=== PATIENT | male | born 1970 | race American Indian/Alaskan Native ===

== ENCOUNTER 2021-11-28 00:23 | Emergency (ER) | payer SELFPAY ==
[2021-11-28 00:50] LABS: Hematocrit 30.2 % (35.5-45.6); Hemoglobin 9.5 gm/dl (11.8-15.2); Mean Corpuscular HGB Conc 31 % (32-34); Mean Corpuscular Volume 85 fl (84-94); Platelet Count 154 K/mm3 (140-440); Red Blood Count 3.55 M/mm3 (3.65-5.03); Red Cell Distribution Width 15.3 % (13.2-15.2)
[2021-11-28 01:11] LABS: Alanine Aminotransferase 13 units/L (7-56); BUN/Creatinine Ratio 17; Blood Urea Nitrogen 15 mg/dL (9-20); Calcium 8.5 mg/dL (8.4-10.2); Hemolysis Index 4
--- NOTE | 2021-11-28 01:18 | XRay Report ---
CHEST 2 VIEWS INDICATION / CLINICAL INFORMATION: CP. COMPARISON: None available. FINDINGS: SUPPORT DEVICES: None. HEART / MEDIASTINUM: No significant abnormality. LUNGS / PLEURA: No significant pulmonary or pleural abnormality. No pneumothorax. ADDITIONAL FINDINGS: No significant additional findings. IMPRESSION: 1. No acute findings. Signer Name: Francisco Weir DO Signed: 11/28/2021 1:14 AM Workstation Name: [id number]
[2021-11-28] MEDS ORDERED: oxyCODONE /ACETAMINOPHEN 5-325MG TAB PO ONE (01:51)
[2021-11-28] MEDS ORDERED: MORPHINE 4 MG/1 ML INJ IM ONE (05:07)
[2021-11-28] MEDS ORDERED: KETOROLAC 30 MG/1 ML INJ IM ONE (05:07)
[2021-11-28 05:11] LABS: Total Cells Counted 100
[2021-11-28 05:12] LABS: Anisocytosis 1+; Platelet Estimate Consistent w Auto
--- NOTE | 2021-11-28 06:28 | Cat Scan Report ---
CTA CHEST WITH CONTRAST INDICATION / CLINICAL INFORMATION: Pt complains of increasing chest pain. TECHNIQUE: Axial CT images were obtained through the chest after injection of 100 cc of Omnipaque 350 IV contrast. 3 plane MIP and/or 3D reconstructions were produced. All CT scans at this location are performed using CT dose reduction for ALARA by means of automated exposure control. COMPARISON: Chest radiograph from earlier in the day FINDINGS: PULMONARY ARTERIES: No pulmonary emboli. THORACIC AORTA: No significant abnormality. HEART: No significant abnormality. CORONARY ARTERY CALCIFICATION: None. MEDIASTINUM / NICK: Several enlarged mediastinal lymph nodes, the largest node in the right paratrach eal region measuring up to 1.4 cm (series 2 image 38). PLEURA: No pleural effusion. No pneumothorax. LUNGS: There is diffuse bronchial wall thickening. Emphysematous change throughout the lungs. ADDITIONAL FINDINGS: There are numerous bilateral axillary lymph nodes, as well as retroperitoneal ly mph nodes. UPPER ABDOMEN: No acute findings. SKELETAL STRUCTURES: No significant osseous abnormality. IMPRESSION: 1. No CT evidence for pulmonary embolism. 2. Bronchial wall thickening suggesting bronchitis. 3. Enlarged mediastinal lymph nodes. Numerous axillary and retroperitoneal lymph nodes, correlate for lymphoproliferative disorder. Signer Name: Francisco Weir DO Signed: 11/28/2021 6:24 AM Workstation Name: [id number]
[2021-11-28 09:10] VITALS: BP 154/99
--- NOTE | 2021-11-28 09:30 | Emergency Department Report ---
ED Chest Pain HPI - General Chief Complaint: Chest Pain Stated Complaint: CHEST PAIN WILLIAM PUI?: No Time Seen by Provider: 11/28/21 09:09 Source: patient Mode of arrival: Ambulatory Limitations: No Limitations - History of Present Illness Initial Comments: Chief complaint: Chest pain coughing up blood HPI: This is a 51-year-old male with history of hypertension chronic bronchitis who presents with chest pain and hemoptysis. Sputum streaked with blood. He denies fever, abdominal pain. He has mild shortness of breath and wheezing. Symptoms resolved with treatment provided emergency department. MD Complaint: chest pain, other (Productive cough) -: Last night Onset: during rest Pain Radiation: none Severity: mild Severity scale (0 -10): 5 Quality: sharp Consistency: now resolved Improves With: nothing Worsens With: other (cough) - Related Data Previous Rx's Medication Instructions Recorded Last Taken Type Albuterol Mdi (or & Nicu Only) 2 puff IH QID PRN #8.5 gram 11/28/21 Unknown Rx [ProAir HFA Inhaler] Doxycycline Hyclate [Doxycycline 100 mg PO Q12HR 7 Days #14 tab 11/28/21 Unknown Rx Hyclate TAB] Allergies Allergy/AdvReac Type Severity Reaction Status Date / Time No Known Allergies Allergy Unverified 11/28/21 00:31 Heart Score - HEART Score History: Slightly suspicious EKG: Normal Age: 45-65 Risk factors: 1-2 risk factors Troponin: < normal limit HEART Score: 2 - EKG Read Time Time EKG Completed: 01:38 EKG Read Time: 01:40 - Critical Actions Critical Actions: 0-3 pts:0.9-1.7%risk of adverse cardiac event.Candidate for discharge ED Review of Systems ROS: Stated complaint: CHEST PAIN WILLIAM Other details as noted in HPI Comment: All other systems reviewed and negative Constitutional: denies: chills, fever Respiratory: cough, shortness of breath Cardiovascular: chest pain Gastrointestinal: denies: abdominal pain, nausea ED Past Medical Hx - Past Medical History Previous Medical History?: Yes Hx Hypertension: Yes Additional medical history: Chronic bronchitis - Surgical History Past Surgical History?: No - Social History Smoking Status: Current Every Day Smoker Substance Use Type: None - Medications Home Medications: Home Medications Medication Instructions Recorded Confirmed Last Taken Type Albuterol Mdi (or & Nicu Only) 2 puff IH QID PRN #8.5 gram 11/28/21 Unknown Rx [ProAir HFA Inhaler] Doxycycline Hyclate [Doxycycline 100 mg PO Q12HR 7 Days #14 tab 11/28/21 Unknown Rx Hyclate TAB] ED Physical Exam - General Limitations: No Limitations General appearance: alert, in no apparent distress - Head Head exam: Present: atraumatic, normocephalic - Eye Eye exam: Present: normal appearance - ENT ENT exam: Present: mucous membranes moist - Neck Neck exam: Present: normal inspection, full ROM - Respiratory Respiratory exam: Present: normal lung sounds bilaterally. Absent: respiratory distress, wheezes, rales, rhonchi - Cardiovascular Cardiovascular Exam: Present: regular rate, normal rhythm, normal heart sounds. Absent: systolic murmur, diastolic murmur, rubs, gallop - GI/Abdominal GI/Abdominal exam: Present: soft, normal bowel sounds. Absent: distended, tenderness, guarding, rebound - Rectal Rectal exam: Present: deferred - Extremities Exam Extremities exam: Present: normal inspection - Neurological Exam Neurological exam: Present: alert, oriented X3 - Psychiatric Psychiatric exam: Present: normal affect, normal mood - Skin Skin exam: Present: warm, dry, intact, normal color. Absent: rash ED Course Vital Signs 11/28/21 11/28/21 11/28/21 00:27 02:20 06:16 Temperature 98.2 F Pulse Rate 98 H Respiratory 22 16 20 Rate Blood Pressure 189/111 Blood Pressure [Left] O2 Sat by Pulse 98 Oximetry 11/28/21 11/28/21 11/28/21 06:17 09:09 09:11 Temperature 97.8 F Pulse Rate 79 Respiratory 20 15 15 Rate Blood Pressure Blood Pressure 154/99 [Left] O2 Sat by Pulse 97 97 Oximetry ED Medical Decision Making - Lab Data Result diagrams: 11/28/21 00:40 11/28/21 00:40 Laboratory Results - last 24 hr 11/28/21 11/28/21 11/28/21 00:40 00:40 01:52 WBC 4.3 L RBC 3.55 L Hgb 9.5 L Hct 30.2 L MCV 85 MCH 27 L MCHC 31 L RDW 15.3 H Plt Count 154 Add Manual Diff Complete Total Counted 100 Seg Neuts % (Manual) 67.0 Lymphocytes % (Manual) 31.0 Monocytes % (Manual) 2.0 Nucleated RBC % Not Reportable Seg Neutrophils # Man 2.9 Band Neutrophils # 0.0 Lymphocytes # (Manual) 1.3 Abs React Lymphs (Man) 0.0 Monocytes # (Manual) 0.1 Eosinophils # (Manual) 0.0 Basophils # (Manual) 0.0 Metamyelocytes # 0.0 Myelocytes # 0.0 Promyelocytes # 0.0 Blast Cells # 0.0 WBC Morphology Not Reportable Hypersegmented Neuts Not Reportable Hyposegmented Neuts Not Reportable Hypogranular Neuts Not Reportable Smudge Cells Not Reportable Toxic Granulation Not Reportable Toxic Vacuolation Not Reportable Dohle Bodies Not Reportable Pelger-Huet Anomaly Not Reportable Misbah Rods Not Reportable Platelet Estimate Consistent w auto Clumped Platelets Not Reportable Plt Clumps, EDTA Not Reportable Large Platelets Not Reportable Giant Platelets Not Reportable Platelet Satelliting Not Reportable Plt Morphology Comment Not Reportable RBC Morphology Not Reportable Dimorphic RBCs Not Reportable Polychromasia Not Reportable Hypochromasia Not Reportable Poikilocytosis Not Reportable Anisocytosis 1+ Microcytosis Not Reportable Macrocytosis Not Reportable Spherocytes Not Reportable Pappenheimer Bodies Not Reportable Sickle Cells Not Reportable Target Cells Not Reportable Tear Drop Cells Not Reportable Ovalocytes Not Reportable Helmet Cells Not Reportable Rehman-[place] Bodies Not Reportable [place] Rings Not Reportable [place] Cells Not Reportable Bite Cells Not Reportable Crenated Cell Not Reportable Elliptocytes Not Reportable Acanthocytes (Spur) Not Reportable Rouleaux Not Reportable Hemoglobin C Crystals Not Reportable Schistocytes Not Reportable Malaria parasites Not Reportable Hernandez Bodies Not Reportable Hem Pathologist Commnt No D-Dimer 486.67 H Sodium 135 L Potassium 4.1 Chloride 102.5 Carbon Dioxide 23 Anion Gap 14 BUN 15 Creatinine 0.9 Estimated GFR > 60 BUN/Creatinine Ratio 17 Glucose 91 Calcium 8.5 Total Bilirubin 0.20 AST 27 ALT 13 Alkaline Phosphatase 86 Troponin T < 0.010 Total Protein 8.3 H Albumin 3.0 L Albumin/Globulin Ratio 0.6 11/28/21 11/28/21 03:33 07:37 WBC RBC Hgb Hct MCV MCH MCHC RDW Plt Count Add Manual Diff Total Counted Seg Neuts % (Manual) Lymphocytes % (Manual) Monocytes % (Manual) Nucleated RBC % Seg Neutrophils # Man Band Neutrophils # Lymphocytes # (Manual) Abs React Lymphs (Man) Monocytes # (Manual) Eosinophils # (Manual) Basophils # (Manual) Metamyelocytes # Myelocytes # Promyelocytes # Blast Cells # WBC Morphology Hypersegmented Neuts Hyposegmented Neuts Hypogranular Neuts Smudge Cells Toxic Granulation Toxic Vacuolation Dohle Bodies Pelger-Huet Anomaly Misbah Rods Platelet Estimate Clumped Platelets Plt Clumps, EDTA Large Platelets Giant Platelets Platelet Satelliting Plt Morphology Comment RBC Morphology Dimorphic RBCs Polychromasia Hypochromasia Poikilocytosis Anisocytosis Microcytosis Macrocytosis Spherocytes Pappenheimer Bodies Sickle Cells Target Cells Tear Drop Cells Ovalocytes Helmet Cells Rehman-Whitney [place] Bodies [place] Rings Aly Cells Bite Cells Crenated Cell Elliptocytes Acanthocytes (Spur) Rouleaux Hemoglobin C Crystals Schistocytes Malaria parasites Hernandez Bodies Hem Pathologist Commnt D-Dimer Sodium Potassium Chloride Carbon Dioxide Anion Gap BUN Creatinine Estimated GFR BUN/Creatinine Ratio Glucose Calcium Total Bilirubin AST ALT Alkaline Phosphatase Troponin T < 0.010 < 0.010 Total Protein Albumin Albumin/Globulin Ratio - Radiology Data Radiology results: report reviewed Patient Name: SUHAIL ROBERTS Gender: Male Date of : 1970 Referring Provider: PABLO LIVINGSTON Organization: [facility] Accession Number: [id number] Requested Date: November 28, 2021 06:04 Report Status: Final Requested Procedure: 1 Procedure Description: CT angio chest Modality: CT Findings Reporting MD: Francisco Weir Dictation Time: November 28, 2021 05:24 Collet Driller: Not available Steam Service Inspector Date: CTA CHEST WITH CONTRAST INDICATION / CLINICAL INFORMATION: Pt complains of increasing chest pain. TECHNIQUE: Axial CT images were obtained through the chest after injection of 100 cc of Omnipaque 350 IV contrast. 3 plane MIP and/or 3D reconstructions were produced. All CT scans at this location are performed using CT dose reduction for ALARA by means of automated exposure control. COMPARISON: Chest radiograph from earlier in the day FINDINGS: PULMONARY ARTERIES: No pulmonary emboli. THORACIC AORTA: No significant abnormality. HEART: No significant abnormality. CORONARY ARTERY CALCIFICATION: None. MEDIASTINUM / NICK: Several enlarged mediastinal lymph nodes, the largest node in the right paratracheal region measuring up to 1.4 cm (series 2 image 38). PLEURA: No pleural effusion. No pneumothorax. LUNGS: There is diffuse bronchial wall thickening. Emphysematous change throughout the lungs. ADDITIONAL FINDINGS: There are numerous bilateral axillary lymph nodes, as well as retroperitoneal lymph nodes. UPPER ABDOMEN: No acute findings. SKELETAL STRUCTURES: No significant osseous abnormality. IMPRESSION: 1. No CT evidence for pulmonary embolism. 2. Bronchial wall thickening suggesting bronchitis. 3. Enlarged mediastinal lymph nodes. Numerous axillary and retroperitoneal lymph nodes, correlate for lymphoproliferative disorder. Signer Name: Francisco Weir DO Signed: 11/28/2021 5:24 AM Workstation Name: [id number] Patient Name: SUHAIL ROBERTS Gender: Male Date of : 1970 Referring Provider: KACIE ED Organization: [facility] Accession Number: [id number] Requested Date: November 28, 2021 00:33 Report Status: Final Requested Procedure: 1 Procedure Description: XR chest routine 2V Modality: XR Findings Reporting MD: Francisco Weir Dictation Time: November 28, 2021 00:14 Collet Driller: Not available Steam Service Inspector Date: CHEST 2 VIEWS INDICATION / CLINICAL INFORMATION: CP. COMPARISON: None available. FINDINGS: SUPPORT DEVICES: None. HEART / MEDIASTINUM: No significant abnormality. LUNGS / PLEURA: No significant pulmonary or pleural abnormality. No pneumothorax. ADDITIONAL FINDINGS: No significant additional findings. IMPRESSION: 1. No acute findings. Signer Name: Francisco Weir DO Signed: 11/28/2021 12:14 AM Workstation Name: [id number] - Medical Decision Making Clinical impression: Acute on chronic bronchitis no indication of ACS or pulmonary embolism. CT angiogram negative for VTE. Heart score 2. Prescribed doxycycline albuterol MDI. Referred to outpatient physician and vulcanizer operator. Referral form faxed to [facility] for outpatient cardiac evaluation. Critical care attestation.: If time is entered above; I have spent that time in minutes in the direct care of this critically ill patient, excluding procedure time. ED Disposition Clinical Impression: Acute bronchitis Disposition: 01 HOME / SELF CARE / HOMELESS Is pt being admited?: No Does the pt Need Aspirin: No Condition: Stable Instructions: Acute Bronchitis (ED), Acute Bronchitis, Adult, [id number] Prescriptions: Doxycycline Hyclate [Doxycycline Hyclate TAB] 100 mg PO Q12HR 7 Days #14 tab Albuterol Mdi (or & Nicu Only) [ProAir HFA Inhaler] 2 puff IH QID PRN #8.5 gram PRN Reason: Shortness Of Breath Referrals: LO FISHER MD [Staff Physician] - 3-5 Days ELLIOTT DINH MD [Staff Physician] - 3-5 Days
--- NOTE | 2021-11-28 09:39 | Electrocardiograph Report ---
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
== END 2021-11-28 10:38 | disposition home or self-care (01) ==
LOC: ED 00:23
DX: J20.9 Acute bronchitis, unspecified (principal); I10 Essential (primary) hypertension; F17.200 Nicotine dependence, unspecified, uncomplicated
CPT/HCPCS: 36415; 71046; 71275; 80053; 84484; 85007; 85025; 85379; 93005; 96372; 99284; J1885; J2270; Q9967

== ENCOUNTER 2022-03-05 12:41 | Inpatient (IN) | payer SELFPAY ==
--- NOTE | 2022-03-05 13:32 | XRay Report ---
CHEST 2 VIEWS INDICATION / CLINICAL INFORMATION: CP. COMPARISON: 11/28/2021 FINDINGS: SUPPORT DEVICES: None. HEART / MEDIASTINUM: No significant abnormality. LUNGS / PLEURA: No significant pulmonary or pleural abnormality. No pneumothorax. ADDITIONAL FINDINGS: No significant additional findings. IMPRESSION: 1. No acute findings. Signer Name: Amadeo Villalba MD Signed: 03/05/2022 1:27 PM Workstation Name: [id number]
[2022-03-05] MEDS ORDERED: MORPHINE 2 MG/1 ML INJ IV ONE ×2 (14:13→17:04)
[2022-03-05] MEDS ORDERED: ONDANSETRON 4 MG/2 ML INJ IV ONE ×2 (14:14→17:05)
[2022-03-05 14:57] LABS: Hematocrit 29.6 % (35.5-45.6); Hemoglobin 9.6 gm/dl (11.8-15.2); Mean Corpuscular HGB Conc 32 % (32-34); Mean Corpuscular Volume 83 fl (84-94); Red Blood Count 3.56 M/mm3 (3.65-5.03)
[2022-03-05] MEDS ORDERED: ERYTHROMYCIN 5 MG/1 GM OPHTH OINT OU ONE (15:26)
--- NOTE | 2022-03-05 15:32 | Emergency Department Report ---
ED Chest Pain HPI - General Chief Complaint: Chest Pain Stated Complaint: CHEST PAIN Time Seen by Provider: 03/05/22 13:36 Source: patient, EMS Mode of arrival: Stretcher Limitations: No Limitations - History of Present Illness MD Complaint: chest pain -: Gradual, days(s) Onset: during rest Pain Location: left chest Pain Radiation: none Severity: mild Severity scale (0 -10): 3 Quality: tightness, heaviness Consistency: intermittent Improves With: nothing Worsens With: exertion re: denies: nausea, vomting, diaphoresis Other Symptoms: cough. denies: fever, leg swelling, palpitations Treatments Prior to Arrival: none - Related Data On Oral Contraceptives: No Previous Rx's Medication Instructions Recorded Last Taken Type RX: Albuterol Mdi (or & Nicu Only) 2 puff IH QID PRN #8.5 gram 11/28/21 Unknown Rx [ProAir HFA Inhaler] RX: Doxycycline Hyclate 100 mg PO Q12HR 7 Days #14 tab 11/28/21 Unknown Rx [Doxycycline Hyclate TAB] RX: Lisinopril [Zestril] 5 mg PO DAILY 90 Days #90 tablet 11/28/21 Unknown Rx RX: amLODIPine 5 mg PO DAILY 90 Days #90 tab 11/28/21 Unknown Rx Allergies Allergy/AdvReac Type Severity Reaction Status Date / Time No Known Allergies Allergy Unverified 03/05/22 12:44 ED Review of Systems ROS: Stated complaint: CHEST PAIN Other details as noted in HPI Constitutional: denies: chills, fever Eyes: denies: eye pain, eye discharge, vision change ENT: denies: ear pain, throat pain Respiratory: cough, shortness of breath, SOB with exertion. denies: stridor Cardiovascular: denies: chest pain, palpitations Endocrine: no symptoms reported Gastrointestinal: denies: abdominal pain, nausea, diarrhea Genitourinary: denies: urgency, dysuria Musculoskeletal: denies: back pain, joint swelling, arthralgia Skin: denies: rash, lesions Neurological: denies: headache, weakness, paresthesias Psychiatric: denies: anxiety, depression Hematological/Lymphatic: denies: easy bleeding, easy bruising ED Past Medical Hx - Past Medical History Previous Medical History?: Yes Hx Hypertension: Yes Hx Deep Vein Thrombosis: No Hx COPD: Yes Additional medical history: Chronic bronchitis - Surgical History Past Surgical History?: Yes - Family History Family history: hypertension - Social History Smoking Status: Current Every Day Smoker Substance Use Type: None - Medications Home Medications: Home Medications Medication Instructions Recorded Confirmed Last Taken Type RX: Albuterol Mdi (or & Nicu Only) 2 puff IH QID PRN #8.5 gram 11/28/21 Unknown Rx [ProAir HFA Inhaler] RX: Doxycycline Hyclate 100 mg PO Q12HR 7 Days #14 tab 11/28/21 Unknown Rx [Doxycycline Hyclate TAB] RX: Lisinopril [Zestril] 5 mg PO DAILY 90 Days #90 tablet 11/28/21 Unknown Rx RX: amLODIPine 5 mg PO DAILY 90 Days #90 tab 11/28/21 Unknown Rx ED Physical Exam - General Limitations: No Limitations General appearance: alert, in no apparent distress - Head Head exam: Present: atraumatic, normocephalic - Eye Eye exam: Present: normal appearance - ENT ENT exam: Present: mucous membranes moist - Neck Neck exam: Present: normal inspection - Respiratory Respiratory exam: Present: rhonchi, other (R base scattered rhonchi and diminished sounds). Absent: respiratory distress - Cardiovascular Cardiovascular Exam: Present: regular rate, normal rhythm. Absent: systolic murmur, diastolic murmur, rubs, gallop - GI/Abdominal GI/Abdominal exam: Present: soft, normal bowel sounds - Rectal Rectal exam: Present: deferred - Extremities Exam Extremities exam: Present: normal inspection - Back Exam Back exam: Present: normal inspection - Neurological Exam Neurological exam: Present: alert, oriented X3 - Psychiatric Psychiatric exam: Present: normal affect, normal mood - Skin Skin exam: Present: warm, dry, intact, normal color. Absent: rash ED Course Vital Signs 03/05/22 03/05/22 03/05/22 12:42 12:54 13:01 Temperature 98.4 F Pulse Rate 100 H 94 H Respiratory 16 26 H Rate Blood Pressure Blood Pressure 132/65 [Left] O2 Sat by Pulse 96 94 91 Oximetry 03/05/22 03/05/22 03/05/22 13:14 13:19 13:31 Temperature 98.2 F Pulse Rate 105 H 89 90 Respiratory 22 24 Rate Blood Pressure 125/89 125/89 Blood Pressure 125/89 [Left] O2 Sat by Pulse 95 95 Oximetry 03/05/22 03/05/22 03/05/22 13:45 14:01 14:12 Temperature Pulse Rate 86 96 H Respiratory 26 H 22 28 H Rate Blood Pressure 125/89 130/84 Blood Pressure [Left] O2 Sat by Pulse 97 93 95 Oximetry 03/05/22 03/05/22 03/05/22 14:15 14:31 14:45 Temperature Pulse Rate 82 84 80 Respiratory 29 H 26 H 24 Rate Blood Pressure 130/84 130/84 130/84 Blood Pressure [Left] O2 Sat by Pulse 93 94 95 Oximetry 03/05/22 03/05/22 03/05/22 15:01 15:15 15:31 Temperature Pulse Rate 82 82 86 Respiratory 23 25 H 16 Rate Blood Pressure 133/81 133/81 133/81 Blood Pressure [Left] O2 Sat by Pulse 96 93 91 Oximetry 03/05/22 03/05/22 03/05/22 15:45 16:01 16:15 Temperature Pulse Rate 81 80 82 Respiratory 24 23 14 Rate Blood Pressure 133/81 135/89 135/89 Blood Pressure [Left] O2 Sat by Pulse 92 96 96 Oximetry 03/05/22 03/05/22 03/05/22 16:31 16:45 17:01 Temperature Pulse Rate 83 78 84 Respiratory 23 27 H 25 H Rate Blood Pressure 135/89 135/89 140/94 Blood Pressure [Left] O2 Sat by Pulse 95 97 91 Oximetry 03/05/22 03/05/22 03/05/22 17:15 17:31 17:45 Temperature Pulse Rate 82 82 83 Respiratory 17 14 28 H Rate Blood Pressure 140/94 140/94 140/94 Blood Pressure [Left] O2 Sat by Pulse 92 94 93 Oximetry 03/05/22 03/05/22 03/05/22 18:01 18:15 18:21 Temperature Pulse Rate 92 H 80 Respiratory 20 24 22 Rate Blood Pressure 142/89 142/89 Blood Pressure [Left] O2 Sat by Pulse 84 96 95 Oximetry ED Medical Decision Making - Lab Data Result diagrams: 03/05/22 13:19 03/05/22 14:53 - EKG Data -: EKG Interpreted by Ct EKG shows normal: sinus rhythm Rate: normal - EKG Data When compared to previous EKG there are: previous EKG unavailable Interpretation: nonspecific ST-T wave enriqueta, LVH 03/05/22 20:02 Second EKG done at 1739, shows sinus rhythm no ST changes similar to EKG #1. Critical care attestation.: If time is entered above; I have spent that time in minutes in the direct care of this critically ill patient, excluding procedure time. ED Disposition Clinical Impression: Chest pain due to CAD, Pneumonia, Anemia Disposition: ADMITTED INPATIENT Condition: Stable Instructions: Nonspecific Chest Pain, Adult, Bacterial Pneumonia (ED) Referrals: LO FISHER MD [Primary Care Provider] - 3-5 Days
[2022-03-05 15:51] LABS: Alanine Aminotransferase 8 units/L (7-56); Albumin 2.5 g/dL (3.9-5); BUN/Creatinine Ratio 9; Blood Urea Nitrogen 11 mg/dL (9-20); Hemolysis Index 2
[2022-03-05 16:46] LABS: Basophils % (Manual) 0 % (0.0-1.8); Eosinophils % (Manual) 0 % (0.0-4.3); Platelet Estimate Consistent w Auto; Total Cells Counted 100
[2022-03-05 16:47] LABS: Anisocytosis 1+
[2022-03-05 18:08] LABS: Platelet Count 247 K/mm3 (140-440)
--- NOTE | 2022-03-05 19:00 | Cat Scan Report ---
CTA chest with contrast INDICATION : ELEVATED D-DIMER PE VS DISECTION 100 ML OMNI 350 . TECHNIQUE: Axial imaging performed through the chest, with contrast bolus timing set to maximize opa cification of the pulmonary arteries. 3-plane MIP reformatted images were obtained. All CT scans at this location are performed using CT dose reduction for ALARA by means of automated exposure control. 100 mL of intravenous contrast administered. COMPARISON: None FINDINGS: Bolus/PTE: Contrast bolus timing is adequate. No filling defect is present to suggest PTE. Mediastinum: Heart and great vessels appear normal. Several shotty mediastinal lymph nodes are pres ent. Lungs: There is moderately advanced emphysema with moderate patchy bibasilar pneumonia. No pleural e ffusion. Upper abdomen: Limited imaging of the upper abdomen shows nothing acute. Bones: Degenerative changes in the spine with nothing acute. IMPRESSION: 1. Negative for PTE. 2. Negative for aortic dissection. No aneurysmal dilatation of the aorta. 3. Moderate patchy bibasilar pneumonia. Several enlarged mediastinal lymph nodes are most likely reac tive in this setting. Signer Name: Juan Lo MD Signed: 03/05/2022 6:56 PM Workstation Name: [id number]
[2022-03-05] MEDS ORDERED: ALBUTEROL 8.5 GM MDI INHALATION IH PRN (21:28)
[2022-03-05] MEDS ORDERED: ONDANSETRON 4 MG/2 ML INJ IV PRN (21:30)
[2022-03-05] MEDS ORDERED: METOCLOPRAMIDE 10 MG/2 ML INJ IV PRN (21:30)
[2022-03-05] MEDS ORDERED: ACETAMINOPHEN 325 MG TAB PO PRN (21:30)
[2022-03-05] MEDS ORDERED: oxyCODONE /ACETAMINOPHEN 5-325MG TAB PO PRN (21:30)
--- NOTE | 2022-03-05 21:36 | History and Physical Report ---
History of Present Illness Date of examination: 03/05/22 Date of admission: 03/05/2022 Chief complaint: Chest pain since a.m. History of present illness: 51-year-old male with history of alcohol and hypertension presents with left- sided chest pain since a.m. Not radiating. No nausea or vomiting or diaphoresis. Chest pain is dull in character and about 6 on a scale of 1-10. Slight shortness of breath present. No palpitations. No exacerbating or relieving factors. Did not have any cardiac work-up in the past. No exertional chest pain. - Past Medical History Previous Medical History?: Yes Hx Hypertension: Yes Hx Deep Vein Thrombosis: No Hx COPD: Yes Additional medical history: Chronic bronchitis - Surgical History Past Surgical History?: Yes - Family History Family history: hypertension - Social History Smoking Status: Current Every Day Smoker Substance Use Type: None - Medications Home Medications: Home Medications Medication Instructions Recorded Confirmed Last Taken Type RX: Albuterol Mdi (or & Nicu Only) 2 puff IH QID PRN #8.5 gram 11/28/21 Unknown Rx [ProAir HFA Inhaler] RX: Doxycycline Hyclate 100 mg PO Q12HR 7 Days #14 tab 11/28/21 Unknown Rx [Doxycycline Hyclate TAB] RX: Lisinopril [Zestril] 5 mg PO DAILY 90 Days #90 tablet 11/28/21 Unknown Rx RX: amLODIPine 5 mg PO DAILY 90 Days #90 tab 11/28/21 Unknown Rx Review of Systems ROS: Stated complaint: CHEST PAIN Other details as noted in HPI Constitutional: denies: chills, fever Eyes: denies: eye pain, eye discharge, vision change ENT: denies: ear pain, throat pain Respiratory: cough, shortness of breath, SOB with exertion. denies: stridor Cardiovascular: denies: chest pain, palpitations Endocrine: no symptoms reported Gastrointestinal: denies: abdominal pain, nausea, diarrhea Genitourinary: denies: urgency, dysuria Musculoskeletal: denies: back pain, joint swelling, arthralgia Skin: denies: rash, lesions Neurological: denies: headache, weakness, paresthesias Psychiatric: denies: anxiety, depression Hematological/Lymphatic: denies: easy bleeding, easy bruising Medications and Allergies Allergies Allergy/AdvReac Type Severity Reaction Status Date / Time diphenhydramine Allergy Swelling Verified 03/05/22 22:06 [From Benadryl] metoclopramide [From Reglan] Allergy Swelling Verified 03/05/22 22:06 Home Medications Medication Instructions Recorded Confirmed Last Taken Type Albuterol Mdi (or & Nicu Only) 2 puff IH QID PRN #8.5 gram 11/28/21 Unknown Rx [ProAir HFA Inhaler] Doxycycline Hyclate [Doxycycline 100 mg PO Q12HR 7 Days #14 tab 11/28/21 Unknown Rx Hyclate TAB] Lisinopril [Zestril] 5 mg PO DAILY 90 Days #90 tablet 11/28/21 Unknown Rx amLODIPine 5 mg PO DAILY 90 Days #90 tab 11/28/21 Unknown Rx Exam - Constitutional Vitals: Temp Pulse Resp BP Pulse Ox 98.7 F 83 21 131/69 95 03/05/22 19:15 03/05/22 19:15 03/05/22 19:15 03/05/22 19:15 03/05/22 19:15 General appearance: Present: no acute distress, well-nourished - EENT Eyes: Present: PERRL ENT: hearing intact, clear oral mucosa - Neck Neck: Present: supple, normal ROM - Respiratory Respiratory effort: normal Respiratory: bilateral: CTA - Cardiovascular Heart rate: 78 Rhythm: regular Heart Sounds: Present: S1 & S2. Absent: rub, click - Extremities Extremities: pulses symmetrical, No edema Peripheral Pulses: within normal limits - Abdominal General gastrointestinal: Present: soft, non-tender, non-distended, normal bowel sounds Male genitourinary: Present: normal - Integumentary Integumentary: Present: clear, warm, dry - Musculoskeletal Musculoskeletal: gait normal, strength equal bilaterally - Psychiatric Psychiatric: appropriate mood/affect, intact judgment & insight - Neurologic Neurologic: CNII-XII intact, moves all extremities HEART Score - HEART Score History: Moderately suspicious Age: 45-65 Risk factors: 1-2 risk factors Troponin: Troponin T < 0.010 ng/mL (0.00-0.029) 03/05/22 17:26 Troponin: < normal limit - Critical Actions Critical Actions: 4-6 pts:12-16.6% risk of adverse cardiac event. Should be admitted Results - Labs CBC & Chem 7: 03/06/22 05:18 03/06/22 05:18 Labs: Laboratory Last Values WBC 4.4 K/mm3 (4.5-11.0) L 03/05/22 13:19 RBC 3.56 M/mm3 (3.65-5.03) L 03/05/22 13:19 Hgb 9.6 gm/dl (11.8-15.2) L 03/05/22 13:19 Hct 29.6 % (35.5-45.6) L 03/05/22 13:19 MCV 83 fl (84-94) L 03/05/22 13:19 MCH 27 pg (28-32) L 03/05/22 13:19 MCHC 32 % (32-34) 03/05/22 13:19 RDW 16.0 % (13.2-15.2) H 03/05/22 13:19 Plt Count 247 K/mm3 (140-440) 03/05/22 13:19 Add Manual Diff Complete 03/05/22 13:19 Total Counted 100 03/05/22 13:19 Seg Neuts % (Manual) 89.0 % (40.0-70.0) H 03/05/22 13:19 Band Neutrophils % 0 % 03/05/22 13:19 Lymphocytes % (Manual) 10.0 % (13.4-35.0) L 03/05/22 13:19 Reactive Lymphs % (Man) 0 % 03/05/22 13:19 Monocytes % (Manual) 1.0 % (0.0-7.3) 03/05/22 13:19 Eosinophils % (Manual) 0 % (0.0-4.3) 03/05/22 13:19 Basophils % (Manual) 0 % (0.0-1.8) 03/05/22 13:19 Metamyelocytes % 0 % 03/05/22 13:19 Myelocytes % 0 % 03/05/22 13:19 Promyelocytes % 0 % 03/05/22 13:19 Blast Cells % 0 % 03/05/22 13:19 Nucleated RBC % Not Reportable 03/05/22 13:19 Seg Neutrophils # Man 0.0 K/mm3 (1.8-7.7) L 03/05/22 13:19 Band Neutrophils # 0.0 K/mm3 03/05/22 13:19 Lymphocytes # (Manual) 0.0 K/mm3 (1.2-5.4) L 03/05/22 13:19 Abs React Lymphs (Man) 0.0 K/mm3 03/05/22 13:19 Monocytes # (Manual) 0.0 K/mm3 (0.0-0.8) 03/05/22 13:19 Eosinophils # (Manual) 0.0 K/mm3 (0.0-0.4) 03/05/22 13:19 Basophils # (Manual) 0.0 K/mm3 (0.0-0.1) 03/05/22 13:19 Metamyelocytes # 0.0 K/mm3 03/05/22 13:19 Myelocytes # 0.0 K/mm3 03/05/22 13:19 Promyelocytes # 0.0 K/mm3 03/05/22 13:19 Blast Cells # 0.0 K/mm3 03/05/22 13:19 WBC Morphology Not Reportable 03/05/22 13:19 Hypersegmented Neuts Not Reportable 03/05/22 13:19 Hyposegmented Neuts Not Reportable 03/05/22 13:19 Hypogranular Neuts Not Reportable 03/05/22 13:19 Smudge Cells Not Reportable 03/05/22 13:19 Toxic Granulation Not Reportable 03/05/22 13:19 Toxic Vacuolation Not Reportable 03/05/22 13:19 Dohle Bodies Not Reportable 03/05/22 13:19 Pelger-Huet Anomaly Not Reportable 03/05/22 13:19 Misbah Rods Not Reportable 03/05/22 13:19 Platelet Estimate Consistent w auto 03/05/22 13:19 Clumped Platelets Not Reportable 03/05/22 13:19 Plt Clumps, EDTA Not Reportable 03/05/22 13:19 Large Platelets Not Reportable 03/05/22 13:19 Giant Platelets Not Reportable 03/05/22 13:19 Platelet Satelliting Not Reportable 03/05/22 13:19 Plt Morphology Comment Not Reportable 03/05/22 13:19 RBC Morphology Not Reportable 03/05/22 13:19 Dimorphic RBCs Not Reportable 03/05/22 13:19 Polychromasia Not Reportable 03/05/22 13:19 Hypochromasia Not Reportable 03/05/22 13:19 Poikilocytosis Not Reportable 03/05/22 13:19 Anisocytosis 1+ 03/05/22 13:19 Microcytosis Few 03/05/22 13:19 Macrocytosis Not Reportable 03/05/22 13:19 Spherocytes Not Reportable 03/05/22 13:19 Pappenheimer Bodies Not Reportable 03/05/22 13:19 Sickle Cells Not Reportable 03/05/22 13:19 Target Cells Not Reportable 03/05/22 13:19 Tear Drop Cells Not Reportable 03/05/22 13:19 Ovalocytes Not Reportable 03/05/22 13:19 Helmet Cells Not Reportable 03/05/22 13:19 Rehman-Gazelle Bodies Not Reportable 03/05/22 13:19 [place] Rings Not Reportable 03/05/22 13:19 Aly Cells Not Reportable 03/05/22 13:19 Bite Cells Not Reportable 03/05/22 13:19 Crenated Cell Not Reportable 03/05/22 13:19 Elliptocytes Not Reportable 03/05/22 13:19 Acanthocytes (Spur) Not Reportable 03/05/22 13:19 Rouleaux Not Reportable 03/05/22 13:19 Hemoglobin C Crystals Not Reportable 03/05/22 13:19 Schistocytes Not Reportable 03/05/22 13:19 Malaria parasites Not Reportable 03/05/22 13:19 Hernandez Bodies Not Reportable 03/05/22 13:19 Hem Pathologist Commnt No 03/05/22 13:19 D-Dimer 864.14 ng/mlDDU (0-234) H 03/05/22 14:53 Sodium 138 mmol/L (137-145) 03/05/22 14:53 Potassium 3.9 mmol/L (3.6-5.0) 03/05/22 14:53 Chloride 103.9 mmol/L (98-107) 03/05/22 14:53 Carbon Dioxide 24 mmol/L (22-30) 03/05/22 14:53 Anion Gap 14 mmol/L 03/05/22 14:53 BUN 11 mg/dL (9-20) 03/05/22 14:53 Creatinine 1.2 mg/dL (0.8-1.3) 03/05/22 14:53 Estimated GFR > 60 ml/min 03/05/22 14:53 BUN/Creatinine Ratio 9 % 03/05/22 14:53 Glucose 88 mg/dL (75-100) 03/05/22 14:53 Calcium 8.0 mg/dL (8.4-10.2) L 03/05/22 14:53 Total Bilirubin 0.40 mg/dL (0.1-1.2) 03/05/22 14:53 AST 17 units/L (5-40) 03/05/22 14:53 ALT 8 units/L (7-56) 03/05/22 14:53 Alkaline Phosphatase 74 units/L (35-129) 03/05/22 14:53 Troponin T < 0.010 ng/mL (0.00-0.029) 03/05/22 17:26 NT-Pro-B Natriuret Pep 185.6 pg/mL (0-900) 03/05/22 14:53 Total Protein 8.3 g/dL (6.3-8.2) H 03/05/22 14:53 Albumin 2.5 g/dL (3.9-5) L 03/05/22 14:53 Albumin/Globulin Ratio 0.4 % 03/05/22 14:53 Short CBC 03/05/22 Range/Units 13:19 WBC 4.4 L (4.5-11.0) K/mm3 Hgb 9.6 L (11.8-15.2) gm/dl Hct 29.6 L (35.5-45.6) % Plt Count 247 (140-440) K/mm3 BMP 03/05/22 14:53 Sodium 138 Potassium 3.9 Chloride 103.9 Carbon Dioxide 24 BUN 11 Creatinine 1.2 Glucose 88 Calcium 8.0 L Cardiac Enzymes 03/05/22 03/05/22 Range/Units 14:53 17:26 Troponin T < 0.010 < 0.010 (0.00-0.029) ng/mL Liver Function 03/05/22 Range/Units 14:53 Total Bilirubin 0.40 (0.1-1.2) mg/dL AST 17 (5-40) units/L ALT 8 (7-56) units/L Alkaline Phosphatase 74 (35-129) units/L Albumin 2.5 L (3.9-5) g/dL Short CBC 03/05/22 03/06/22 Range/Units 13:19 05:18 WBC 4.4 L 6.5 (4.5-11.0) K/mm3 Hgb 9.6 L 8.7 L (11.8-15.2) gm/dl Hct 29.6 L 27.2 L (35.5-45.6) % Plt Count 247 218 (140-440) K/mm3 BMP 03/05/22 03/06/22 14:53 05:18 Sodium 138 139 Potassium 3.9 3.8 Chloride 103.9 106.5 Carbon Dioxide 24 24 BUN 11 13 Creatinine 1.2 1.2 Glucose 88 117 H Calcium 8.0 L 7.9 L Cardiac Enzymes 03/05/22 03/05/22 03/05/22 Range/Units 14:53 17:26 23:21 Troponin T < 0.010 < 0.010 < 0.010 (0.00-0.029) ng/mL 03/06/22 Range/Units 05:18 Troponin T < 0.010 (0.00-0.029) ng/mL Liver Function 03/05/22 03/06/22 Range/Units 14:53 05:18 Total Bilirubin 0.40 0.20 (0.1-1.2) mg/dL AST 17 16 (5-40) units/L ALT 8 8 (7-56) units/L Alkaline Phosphatase 74 73 (35-129) units/L Albumin 2.5 L 2.3 L (3.9-5) g/dL - Imaging and Cardiology EKG: report reviewed (Normal sinus rhythm no acute ST-T wave changes.) Assessment and Plan Advance Directives: Yes (Full code) VTE prophylaxis?: Chemical Plan of care discussed with patient/family: Yes - Patient Problems (1) Acute coronary syndrome Current Visit: Yes Status: Acute Plan to address problem: Chest pain work-up. Serial troponins. Lexiscan in the morning. (2) Hypertension Current Visit: Yes Status: Chronic Qualifiers: Hypertension type: primary hypertension Qualified Code(s): I10 - Essential (primary) hypertension Plan to address problem: Continue antihypertensives and adjust medications. (3) Anemia Current Visit: Yes Status: Chronic Qualifiers: Anemia type: iron deficiency Plan to address problem: Microcytic and secondary to iron deficiency levels Check iron levels (4) Malnutrition Current Visit: Yes Status: Chronic Qualifiers: Protein-calorie malnutrition severity: moderate Plan to address problem: Albumin level is 2.5 Zofran (5) DVT prophylaxis Current Visit: Yes Status: Acute (6) Advance care planning Current Visit: Yes Status: Acute Plan to address problem: On heparin and GI prophylaxis.
[2022-03-05] MEDS: MORPHINE 2 MG/1 ML INJ IV PRN (22:07)
[2022-03-05] MEDS: amLODIPine 5 MG TAB PO SCH (22:07)
[2022-03-05] MEDS: HEPARIN 5,000 UNIT/1 ML VIAL SUB-Q SCH (22:08)
[2022-03-05] MEDS: LISINOPRIL 5 MG TAB PO SCH (22:08)
[2022-03-05] MEDS: FAMOTIDINE 20 MG/2 ML INJ IV SCH (22:08)
[2022-03-06] MEDS: MORPHINE 2 MG/1 ML INJ IV PRN ×2 (05:56→10:45)
[2022-03-06 06:13] LABS: Basophils % (Auto) 0.4 % (0.0-1.8); Eosinophils % (Auto) 0.4 % (0.0-4.3); Hematocrit 27.2 % (35.5-45.6); Hemoglobin 8.7 gm/dl (11.8-15.2); Lymphocytes # (Auto) 1.3 K/mm3 (1.2-5.4); Lymphocytes % (Auto) 19.7 % (13.4-35.0); Mean Corpuscular HGB Conc 32 % (32-34); Mean Corpuscular Volume 83 fl (84-94); Monocytes # (Auto) 0.5 K/mm3 (0.0-0.8); Monocytes % (Auto) 7.8 % (0.0-7.3); Platelet Count 218 K/mm3 (140-440); Red Blood Count 3.26 M/mm3 (3.65-5.03); Red Cell Distribution Width 16.1 % (13.2-15.2)
[2022-03-06 06:32] LABS: Alanine Aminotransferase 8 units/L (7-56); Albumin 2.3 g/dL (3.9-5); BUN/Creatinine Ratio 11; Blood Urea Nitrogen 13 mg/dL (9-20); Calcium 7.9 mg/dL (8.4-10.2); Hemolysis Index 11
[2022-03-06] MEDS ORDERED: REGADENOSON 0.4 MG/5 ML INJ IV ONE ×2 (08:43→08:47)
--- NOTE | 2022-03-06 10:36 | Electrocardiograph Report ---
[facility] Test Date: 2022-03-05 Test Time: 12:56:13 Pat Name: SUHAIL ROBERTS Department: Room: A476 Gender: M Ratings Analyst: GP : 1970 Requested By: TRI BRANDON Order Number: [id number] Reading MD: Andi Salguero Measurements Intervals [place] Rate: 93 P: 68 LA: 144 QRS: 53 QRSD: 94 T: 13 QT: 340 QTc: 422 Interpretive Statements Sinus rhythm Probable left atrial enlargement Compared to ECG 11/28/2021 01:38:13 ST (T wave) deviation no longer present Electronically Signed On 03-06-2022 10:35:46 EDT by Andi Salguero
--- NOTE | 2022-03-06 10:40 | Electrocardiograph Report ---
[facility] Test Date: 2022-03-05 Test Time: 17:39:29 Pat Name: SUHAIL ROBERTS Department: Room: A476 1 Gender: M Nurse Transitional: [id number] : 1970 Requested By: PARTH PEÑALOZA Order Number: [id number] Reading MD: Andi Salguero Measurements Intervals [place] Rate: 82 P: 55 [place]: 159 QRS: 43 QRSD: 93 T: 25 QT: 360 QTc: 421 Interpretive Statements Sinus rhythm Consider left ventricular hypertrophy Compared to ECG 03/05/2022 12:56:13 No significant changes Electronically Signed On 03-06-2022 10:39:57 EDT by Andi Salguero
[2022-03-06] MEDS: HEPARIN 5,000 UNIT/1 ML VIAL SUB-Q SCH (10:44)
[2022-03-06] MEDS: amLODIPine 5 MG TAB PO SCH (10:44)
[2022-03-06] MEDS: LISINOPRIL 5 MG TAB PO SCH (10:45)
[2022-03-06] MEDS: FAMOTIDINE 20 MG/2 ML INJ IV SCH (10:45)
[2022-03-06 11:34] VITALS: BP 149/85
--- NOTE | 2022-03-06 12:36 | Nuclear Medicine Report ---
APPROVED REPORT Exam: Nuclear Stress Test Indication: Chest pain [facility] #: A476 Ht: 5 ft 11 in Wt: 170 lbs BSA: 1.97 m2 HR: 82 bpmBMI: 23.70 Rhythm: Sinus Rhythm Stress Test Details Stress Test: Pharmacologic stress testing performed using 0.4 mg of regadenoson per 5 mL given IV over 10 seconds. Reason for pharmacologic stress test: physical limitation. HR Resting HR: 83 bpm Max HR Achieved: 105 bpm Max Heart Rate (APMHR): 168 bpm Target HR (85% APMHR): 142 bpm % of APMHR: 62 Recovery HR: 91 bpm HR response to stress: Normal HR response to stress BP Resting BP: 131/74 mmHg Max BP: 150/91 mmHg Recovery BP: 137/76 mmHg BP response to stress: Normal blood pressure response to stress. ECG Resting ECG: Sinus Rhythm Stress ECG: Sinus Tachycardia ST Change: None Arrhythmia: None Recovery ECG: Sinus Rhythm Recovery ST Change: None Recovery Arrhythmia: None Clinical Reason for Termination: Completed protocol Stress Symptoms: Stomach/ Chest pain NM EXAM: Myocardial Perfusion REST/STRESS Imaging Protocol: Rest Tc-99m/Stress Tc-99m 1 day Resting Data Rest SPECT myocardial perfusion imaging was performed in supine position 45 minutes following the intravenous injection of 10 mCi of Tc-99m Myoview. Time of rest injection: 0700 Pharmacologic Stress Pharmacologic stress test was performed by injecting Regadenoson 0.4 mg IV push followed by the intravenous injection of 28 mCi of Tc-99m Myoview. Time of stress injection: 0940 Gated Stress SPECT was performed 30 minutes after stress injection. The images were gated to evaluate regional wall motion and calculate left ventricular ejection fraction. Study Quality Study: excellent Lung Uptake: Normal Study Data TID = 1.02. Perfusion Wall Motion The rest and stress images show normal left ventricular wall motion.Calculated post stress LVEF =50%. Nuclear Conclusion ECG Findings: negative for ischemia Clinical Findings: negative for ischemia Nuclear Findings: negative for ischemia Exercise Capacity: not assessed Left Ventricular Function: normal Risk Study: low Normal study. No scintigraphic evidence for myocardial ischemia or scar.
--- NOTE | 2022-03-06 12:51 | Discharge Summary ---
Providers - Providers Date of Admission: 03/05/22 21:30 Date of discharge: 03/06/22 Attending physician: AAKASH HIGGINS MD Primary care physician: LO FISHER Hospitalization Reason for admission: chest pain Condition: Stable Hospital course: History of present illness: 51-year-old male with history of alcohol and hypertension presents with left- sided chest pain since a.m. Not radiating. No nausea or vomiting or diaphoresis. Chest pain is dull in character and about 6 on a scale of 1-10. Slight shortness of breath present. No palpitations. No exacerbating or relieving factors. Did not have any cardiac work-up in the past. No exertional chest pain. hospital course: patient admitted for chest pain. NM stress test ordered, negative for acute ischemia. Will d/c home with prescription for aspirin, iron, lisinopril, amlodipine. She was advised to follow up as an outpatient with her primary care physician. Assessment and plan: (1) Acute coronary syndrome Current Visit: Yes Status: Acute Plan to address problem: Chest pain work-up. Serial troponins. Lexiscan in the morning. (2) Hypertension Current Visit: Yes Status: Chronic Qualifiers: Hypertension type: primary hypertension Qualified Code(s): I10 - Essential (primary) hypertension Plan to address problem: Continue antihypertensives and adjust medications. (3) Anemia Current Visit: Yes Status: Chronic Qualifiers: Anemia type: iron deficiency Plan to address problem: Microcytic and secondary to iron deficiency levels Check iron levels (4) Malnutrition Current Visit: Yes Status: Chronic Qualifiers: Protein-calorie malnutrition severity: moderate Plan to address problem: Albumin level is 2.5 Zofran (5) DVT prophylaxis Current Visit: Yes Status: Acute (6) Advance care planning Current Visit: Yes Status: Acute Plan to address problem: On heparin and GI prophylaxis. Disposition: 01 HOME / SELF CARE / HOMELESS Final Discharge Diagnosis (Prints w/discharge instructions): acute coronary syndrome Core Measure Documentation - Palliative Care Palliative Care/ Comfort Measures: Not Applicable - Core Measures Any of the following diagnoses?: none Exam - Physical Exam Narrative exam: Physical Exam: VITAL SIGNS: Reviewed. GENERAL: The patient appears normally developed, Vital signs as documented. HEAD: No signs of head trauma. EYES: Pupils are equal. Extraocular motions intact. EARS: Hearing grossly intact. MOUTH: Oropharynx is normal. NECK: No adenopathy, no JVD. CHEST: Chest with clear breath sounds bilaterally. No wheezes, rales, or rhonchi. CARDIAC: Regular rate and rhythm. S1 and S2, without murmurs, gallops, or rubs. VASCULAR: No Edema. Peripheral pulses normal and equal in all extremities. ABDOMEN: Soft, non tender and non distended. No rebound or guarding, and no masses palpated. Bowel Sounds normal. MUSCULOSKELETAL: Good range of motion of all major joints. Extremities without clubbing, cyanosis or edema. NEUROLOGIC EXAM: Alert and oriented x 4. no focal sensory or strength deficits. PSYCHIATRIC: Mood normal. SKIN: detail exam as documented in skin assessment - Constitutional Vitals: Temp Pulse Resp BP Pulse Ox 98.5 F 85 18 149/85 100 03/06/22 11:10 03/06/22 11:10 03/06/22 11:10 03/06/22 11:10 03/06/22 11:10 Plan Follow up with: LO FISHER MD [Primary Care Provider] - 3-5 Days Prescriptions: amLODIPine 5 mg PO DAILY 90 Days #90 tab Ferrous Sulfate [Ferrous Sulfate 324 MG] 324 mg PO DAILY 90 Days #90 tab Aspirin EC [Halfprin EC] 81 mg PO QDAY 90 Days #90 tablet. Lisinopril [Zestril] 5 mg PO DAILY 90 Days #90 tablet
[2022-03-06] MEDS ORDERED: FAMOTIDINE 20 MG TAB PO SCH (22:00)
== END 2022-03-06 14:24 | disposition home or self-care (01) | DRG 302 ==
LOC: ED 12:41 → 4A 21:30
PROVIDERS: ADMIT Internal Medicine; ATTEND Internal Medicine
DX: I25.10 Atherosclerotic heart disease of native coronary artery without angina pectoris (principal); J18.9 Pneumonia, unspecified organism; I24.9 Acute ischemic heart disease, unspecified; E44.0 Moderate protein-calorie malnutrition; I10 Essential (primary) hypertension; D64.9 Anemia, unspecified; R07.89 Other chest pain; J44.9 Chronic obstructive pulmonary disease, unspecified; F17.200 Nicotine dependence, unspecified, uncomplicated; D50.9 Iron deficiency anemia, unspecified; Z82.49 Family history of ischemic heart disease and other diseases of the circulatory system; Z88.8 Allergy status to other drugs, medicaments and biological substances; Z68.24 Body mass index [BMI] 24.0-24.9, adult
CPT/HCPCS: 36415; 71046; 71275; 78452; 80053; 83880; 84484; 85007; 85025; 85379; 93005; 93017; G0378; J3490; A9502; J1644; J2270; J2405; J2785; Q9967